=== PATIENT | female | born 1985 | race Caucasian/White ===

== ENCOUNTER 2020-03-06 05:22 | Inpatient (IN) ==
[2020-03-06] MEDS ORDERED: BUTORPHANOL 2 MG/ML VIAL IV PRN (05:39)
[2020-03-06] MEDS ORDERED: ONDANSETRON 4 MG/2 ML VIAL IV PRN (05:39)
[2020-03-06] MEDS ORDERED: MEPERIDINE 50 MG/1 ML VIAL IV PRN (05:39)
[2020-03-06] MEDS ORDERED: LACTATED RINGERS 1,000 ML IV SCH ×2 (06:00→09:30)
[2020-03-06 06:05] LABS: Basophils % 0.4 % (0.0-0.8); Eosinophils # 0.2 10*3/uL (0.0-0.87); Eosinophils % 1.9 % (0.00-10.9); Hematocrit 32.1 VOL% (35.7-47.0); Hemoglobin 10.5 GM/DL (12.0-16.0); Immature Granulocytes % 0.6 %; Immature Granulocytes Absolute 0.07 #; Lymphocytes # 2.1 10*3/uL (1.4-4.0); Lymphocytes % 19.3 % (21.3-54.2); Mean Corpuscular HGB Conc 32.7 GM/DL (32-36); Mean Platelet Volume 10.8 FL (9.6-12.0); Monocytes % 10.4 % (1.7-12.7); Neutrophils % 67.4 % (38.7-73.9); Platelet Count 267 T/CUMM (130-400); Red Blood Count 3.69 MC/CUMM (3.8-5.5); White Blood Count 10.8 T/CUMM (4-12)
[2020-03-06] MEDS ORDERED: OXYTOCIN/LR 20 UNIT/1,000 ML BAG IV ONE ×2 (06:11→17:51)
[2020-03-06] MEDS ORDERED: OXYTOCIN/LR 20 UNIT/1,000 ML BAG IV SCH (06:30)
[2020-03-06 06:37] LABS: Alanine Aminotransferase 27 U/L (13-56); Albumin 2.8 G/DL (3.4-5.0); Alkaline Phosphatase 206 U/L (45-117); Aspartate Amino Transferase 18 U/L (0-37); Bilirubin,Total < 0.39 MG/DL (0.2-1.0); Blood Urea Nitrogen 8 MG/DL (7-18); Calcium 9.3 MG/DL (8.5-10.1); Estimated Glom Filtration Rate 136 ML/MIN; Glucose 93 MG/DL (74-106); Osmolality,Calculated 270.8 MOS/KG (273-304); Total Protein 6.7 G/DL (6.4-8.3)
[2020-03-06] MEDS ORDERED: CITRIC ACID/SODIUM CITRATE 30 ML UDCUP PO ONE (09:20)
[2020-03-06] MEDS ORDERED: ePHEDrine 50 MG/ML VIAL IV PRN (09:20)
[2020-03-06] MEDS ORDERED: LACTATED RINGERS 1,000 ML IV ONE (09:20)
[2020-03-06] MEDS ORDERED: FAMOTIDINE 20 MG/2 ML VIAL IV ONE (09:20)
[2020-03-06] MEDS ORDERED: NALOXONE 0.4 MG/ML VIAL IV PRN (09:21)
[2020-03-06] MEDS ORDERED: hydrOXYzine HCL 25 MG/1 ML VIAL IM PRN (09:21)
[2020-03-06] MEDS ORDERED: diphenhydrAMINE 50 MG/1 ML VIAL IV PRN ×2 (09:21)
[2020-03-06] MEDS ORDERED: LACTATED RINGERS 250 ML IV PRN (09:21)
[2020-03-06 09:29] LABS: INR 0.9; PT Patient Result 9.8 SECS (9.8-11.9); Partial Thromboplastin Time 26.1 SECS (23.9-33.8)
[2020-03-06] MEDS ORDERED: fentaNYL 2 MCG/ROPIV 0.2% EPID 100 ML EPIDURAL SCH (09:30)
[2020-03-06 11:53] LABS: Bacteria,Urine Occasional /HPF (Few); Bilirubin,Urine Negative (Negative); Blood, Urine Negative (Negative); Glucose,Urine (UA) Negative (Negative); Ketones,Urine Negative (Negative); Mucus,Urine Occasional /LPF (Occasional); Nitrite,Urine Negative (Negative); Protein,Urine Negative; Urine Appearance CLEAR (Clear); Urine Color Straw (Yellow); Urine Specific Gravity 1.009 (1.001-1.035); Urine Urobilinogen < 2.0 EU/DL (0.2-1.0)
[2020-03-06] MEDS ORDERED: METHYLERGONOVINE 0.2 MG/1 ML AMP IM ONE (16:00)
[2020-03-06] MEDS ORDERED: oxyCODONE/ACETAMINOPHEN 5-325 MG TABLET PO PRN ×2 (16:12)
[2020-03-06] MEDS ORDERED: BENZOCAINE 20%/MENTHOL 0.5% SPRAY 56 GM CAN TOP PRN (16:12)
[2020-03-06] MEDS ORDERED: BISACODYL 10 MG SUPP RECTAL PRN (16:12)
[2020-03-06] MEDS ORDERED: DIPH/TET/ACEL PERT BOOSTER VACCINE 0.5 ML VIAL IM ONE (16:12)
[2020-03-06] MEDS ORDERED: ACETAMINOPHEN 325 MG TABLET PO PRN (16:12)
[2020-03-06] MEDS ORDERED: WITCH HAZEL PADS 100/JAR TOP PRN (16:12)
[2020-03-06] MEDS ORDERED: LANOLIN 50% CREAM 0.3 OZ TUBE TOP PRN (16:12)
[2020-03-06] MEDS ORDERED: HYDROCORTISONE 2.5% RECTAL CREAM 30 GM TUBE TOP PRN (16:12)
[2020-03-06 16:18] LABS: Cord Venous Blood HCO3 19.9 MMOL/L; Cord Venous Blood PCO2 43.4 MMHG; Cord Venous Blood PO2 37.5
[2020-03-06] MEDS: ENOXAPARIN 40 MG/0.4 ML SYRINGE SUBCUT SCH (21:58)
[2020-03-06] MEDS: FERROUS SULFATE 325 MG TABLET PO SCH (21:58)
[2020-03-06] MEDS: DOCUSATE SODIUM 100 MG CAPSULE PO SCH (21:58)
[2020-03-06] MEDS: IBUPROFEN 800 MG TABLET PO PRN (21:59)
[2020-03-07] MEDS: IBUPROFEN 800 MG TABLET PO PRN ×2 (03:18→19:39)
[2020-03-07 05:31] LABS: Basophils # 0.1 10*3/uL (0.0-0.2); Basophils % 0.3 % (0.0-0.8); Eosinophils # 0.1 10*3/uL (0.0-0.87); Eosinophils % 0.4 % (0.00-10.9); Hematocrit 29.6 VOL% (35.7-47.0); Hemoglobin 9.7 GM/DL (12.0-16.0); Immature Granulocytes % 0.5 %; Immature Granulocytes Absolute 0.09 #; Lymphocytes # 2.4 10*3/uL (1.4-4.0); Lymphocytes % 13.7 % (21.3-54.2); Mean Corpuscular HGB Conc 32.8 GM/DL (32-36); Mean Corpuscular Volume 87.8 FL (87-102); Mean Platelet Volume 11.3 FL (9.6-12.0); Monocytes % 10.6 % (1.7-12.7); Neutrophils % 74.5 % (38.7-73.9); Platelet Count 223 T/CUMM (130-400); Red Blood Count 3.37 MC/CUMM (3.8-5.5); White Blood Count 17.8 T/CUMM (4-12)
[2020-03-07] MEDS: MULTIVITAMIN (PRENATAL) TABLET PO SCH (08:57)
[2020-03-07] MEDS: FERROUS SULFATE 325 MG TABLET PO SCH ×3 (08:57→20:31)
[2020-03-07] MEDS: DOCUSATE SODIUM 100 MG CAPSULE PO SCH ×3 (08:57→20:31)
[2020-03-07] MEDS: ENOXAPARIN 40 MG/0.4 ML SYRINGE SUBCUT SCH ×2 (10:50→22:17)
[2020-03-08 08:02] VITALS: BP 111/69
[2020-03-08] MEDS: ENOXAPARIN 40 MG/0.4 ML SYRINGE SUBCUT SCH (09:51)
[2020-03-08] MEDS: FERROUS SULFATE 325 MG TABLET PO SCH (09:51)
[2020-03-08] MEDS: MULTIVITAMIN (PRENATAL) TABLET PO SCH (09:51)
[2020-03-08] MEDS: DOCUSATE SODIUM 100 MG CAPSULE PO SCH (09:51)
== END 2020-03-08 11:50 | disposition home or self-care (01) | DRG 807 ==
LOC: N.LDOUT 05:22 → N.LD 05:25 → N.OB 21:40
PROVIDERS: ADMIT Obstetrics & Gynecology; ATTEND Obstetrics & Gynecology